=== PATIENT | male | born 1955 | race Caucasian/White ===

== ENCOUNTER → 2024-07-29 | Outpatient (CLI) | payer OTHER, SELFPAY ==
[2024-07-29 11:15] LABS: Collection Type, Urine Clean Catch
[2024-07-29 11:34] LABS: Basophils # (Auto) 0.1 Thou/mm3 (0.0-0.2); Basophils % (Auto) 1 % (0-2.5); Eosinophils # (Auto) 0.3 Thou/mm3 (0.0-0.5); Eosinophils % (Auto) 4 % (0-10); Hematocrit 44.8 % (41.0-53.0); Immature Granulocytes % (Auto) 1 % (0-0); Immature Granulocytes Auto 0.06 Thou/mm3 (0.00-0.00); Lymphocytes # (Auto) 1.9 Thou/mm3 (1.0-4.8); Lymphocytes % (Auto) 23 % (10-50); Mean Corpuscular HGB Conc 33.5 g/dl (31.0-37.0); Mean Corpuscular Hemoglobin 30.5 pg (25.0-35.0); Mean Corpuscular Volume 91 fL (80-100); Monocytes # (Auto) 0.9 Thou/mm3 (0.0-0.8); Monocytes % (Auto) 11 % (0-12); Neutrophils % (Auto) 61 % (37-80); Nucleated Red Blood Cell % 0 /100 WBC (0); Platelet Count 298 Thou/mm3 (140-440); RDW Standard Deviation 40.8 fL (35.1-43.9); Red Blood Count 4.92 Miln/mm3 (4.50-5.90); White Blood Count 8.2 Thou/mm3 (3.8-10.6)
[2024-07-29 11:43] LABS: Bilirubin,Urine Negative (Negative); Blood,Urine Trace (Negative); Clarity,Urine Clear (Clear/Hazy); Color,Urine Lt-Yellow (Lt Yel-Yel); Glucose, Urine Negative (Negative); Ketones,Urine Negative (Negative); Leukocyte Esterase,Urine Negative (Negative); Nitrite,Urine Negative (Negative); PH,Urine 5.5 (5.0-7.0); Protein,Urine Trace (Neg - Trace); RBC,Urine 3 /hpf (0-3); Specific Gravity,Urine 1.027 (1.001-1.035); Squamous Epithelial Cell,Urine 1 /hpf (0-5); Urobilinogen,Urine Negative mg/dL (0.0-1.0); WBC,Urine < 1 /hpf (0-5)
[2024-07-29 11:58] LABS: Alanine Aminotransferase 23 U/L (10-49); Albumin, Serum 4.2 gm/dL (3.4-4.8); Albumin/Globulin Ratio 1.6 (1.2-2.2); Alkaline Phosphatase 109 U/L (46-116); Anion Gap 6 (7-16); Aspartate Amino Transferase 24 U/L (0-34); BUN/Creatinine Ratio 22 Ratio (12-20); Bilirubin,Total 0.6 mg/dL (0.3-1.2); Blood Urea Nitrogen 22 mg/dL (9-23); Calcium 9.6 mg/dL (8.3-10.6); Calcium (Corrected) 9.6 mg/dL (8.5-10.1); Carbon Dioxide 29.4 mMol/L (20.0-31.0); Cardiac Risk Estimate 3.9 RATIO (4.0-6.7); Chloride 107 mMol/L (98-107); Cholesterol 198 mg/dL (132-200); Globulin 2.6 gm/dL (2.3-3.5); Glucose 103 mg/dL (74-106); HDL Cholesterol 51 mg/dL (40-60); LDL Cholesterol,Calculated 131 mg/dL (0-130); Osmolality,Calculated 286 (275-295); Potassium 5.4 mMol/L (3.4-5.1); Sodium 142 mMol/L (136-145); Thyroid Stimulating Hormone 2.63 uIU/mL (0.55-4.78); Total Protein 6.8 gm/dL (5.7-8.2); Triglycerides 82 mg/dL (30-150); eGFR > 60 See Note
== END | disposition home or self-care (01) ==
LOC: COPL 10:05
PROVIDERS: PCP Family Medicine; Referring Provider Family Medicine; Visit Provider Family Medicine
DX: Z00.00 Encounter for general adult medical examination without abnormal findings (principal); E78.2 Mixed hyperlipidemia; I10 Essential (primary) hypertension
CPT/HCPCS: 36415; 80053; 80061; 81001; 84443; 85025

== ENCOUNTER → 2024-08-06 | Outpatient (CLI) | payer OTHER, SELFPAY ==
--- NOTE | 2024-08-06 10:38 | XR_ITS ---
Examination: PA chest single view TECHNIQUE: Upright PA chest single view Exam date and time: August 06, 2024 1206 hours Comparison November 27, 2023 INDICATIONS: COPD diagnosis with coughing shortness of breath beginning one week ago. FINDINGS: Mild hyperexpansion. Normal heart size. Lungs are clear IMPRESSION: COPD No pneumonia identified
== END | disposition home or self-care (01) ==
PROVIDERS: PCP Family Medicine; Referring Provider Family Medicine; Visit Provider Family Medicine
DX: J44.9 Chronic obstructive pulmonary disease, unspecified (principal); R05.1 Acute cough
CPT/HCPCS: 71045

== ENCOUNTER 2024-09-04 14:48 | Emergency (ER) | payer OTHER, SELFPAY ==
[2024-09-04 15:25] VITALS: BP 154/75; PULSE 77; RESP 18; TEMP 37; O2SAT 94
--- NOTE | 2024-09-04 15:26 | PD.EDURI ---
Upper Respiratory Inf. RME/HPI General Chief Complaint: Flu Like Symptoms Stated Complaint: WANTS COVID TEST Time Seen by Provider: 09/04/24 15:27 Source: patient Arrival date/time: 09/04/24 14:48 69-year-old male with a history of COPD presents to the emergency room with a chief complaint of wanting a COVID test. Patient states he has had coughing and congestion for the last weeks. Patient states he is 80% better but states he would like a COVID test to safely isolate from family members if needed. Patient denies any other complaints Mode of arrival: ambulatory Limitations: no limitations Related Data Home Medications ?Medication ?Instructions ?Recorded ?Confirmed albuterol sulfate 90 mcg/actuation 2 puff inhalation Q6H PRN 05/09/14 02/28/24 aerosol inhaler (Proventil HFA) Shortness Of Breath #0 inhalations fluticasone propionate 50 1 ea intranasal QDAY 02/18/22 02/28/24 mcg/actuation nasal spray,suspension gemfibrozil 600 mg tablet 600 mg PO QDAY 02/18/22 02/28/24 latanoprost 0.005 % eye drops 1 drp ophthalmic (eye) QDAY 02/18/22 02/28/24 loratadine 10 mg tablet 1 tab PO QDAY 02/18/22 02/28/24 montelukast 10 mg tablet 1 tab PO QDAY 02/18/22 02/28/24 Previous Rx's ?Medication ?Instructions ?Recorded albuterol sulfate 2.5 mg/3 mL 2.5 mg (3 mL) inhalation Q6H #90 mL 08/28/22 (0.083 %) solution for nebulization budesonide 0.25 mg/2 mL suspension 0.25 mg (2 mL) inhalation BID #60 08/28/22 for nebulization mL Allergies Allergy/AdvReac Type Severity Reaction Status Date / Time clindamycin Allergy Mild RASH Verified 09/04/24 14:50 Penicillins Allergy Mild Seizure Verified 09/04/24 14:50 Review of Systems Review of Systems Systems Reviewed: All systems reviewed, normal except as documented Constitutional Constitutional: Reports system reviewed and no additional complaints, except as documented, Denies fatigue, Denies fever(s), Denies headache(s) and Denies weakness Eyes Eyes: Reports system reviewed and no additional complaints, except as documented, Denies blurry vision and Denies change in vision ENT Ears, Nose, Mouth, and Throat: Reports system reviewed and no additional complaints, except as documented, Denies otalgia, Denies headache(s), Denies nasal congestion, Denies throat swelling and Denies vertigo Cardiovascular Cardiovascular: Reports system reviewed and no additional complaints, except as documented, Denies chest pain, Denies dyspnea and Denies dyspnea on exertion Respiratory Respiratory: Reports system reviewed and no additional complaints, except as documented, Reports chest congestion, Reports cough, Denies dyspnea, Denies dyspnea on exertion and Denies wheezing Gastrointestinal Gastrointestinal: Reports system reviewed and no additional complaints, except as documented, Denies abdominal pain, Denies cramping, Denies nausea and Denies vomiting Genitourinary Genitourinary: Reports system reviewed and no additional complaints, except as documented, Denies dysuria and Denies hematuria Musculoskeletal Musculoskeletal: Reports system reviewed and no additional complaints, except as documented and Denies back pain Integumentary/Breasts Skin/Breast: Reports system reviewed and no additional complaints, except as documented and Denies wounds Neurologic Neurologic: Reports system reviewed and no additional complaints, except as documented, Denies confusion, Denies headache(s), Denies lack of coordination, Denies vertigo and Denies weakness Psychiatric Psychiatric: Reports system reviewed and no additional complaints, except as documented, Denies anxiety, Denies confusion, Denies depression, Denies paranoia, Denies suicidal ideation and Denies tactile hallucinations Endocrine Endocrine: Reports system reviewed and no additional complaints, except as documented and Denies fatigue Hematologic/Lymphatic Hematologic/Lymphatic: Reports system reviewed and no additional complaints, except as documented and Denies lymphadenopathy Allergic/Immunologic Allergic/Immunologic: Reports system reviewed and no additional complaints, except as documented, Denies throat swelling, Denies urticaria and Denies wheezing ED Exam General Limitations: Present no limitations General appearance: Present alert and in no apparent distress Head Head exam: Present atraumatic Eye Eye exam: Present normal appearance, PERRL and EOMI ENT ENT exam: Present normal exam, normal oropharynx and mucous membranes moist Neck Neck exam: Present normal inspection, full ROM and trachea midline Chest Chest inspection: Present normal inspection and symmetric chest wall rise Respiratory Respiratory exam: Present normal lung sounds bilaterally Cardiovascular Cardiovascular exam: Present regular rate, normal rhythm and normal heart sounds Abdominal Exam Abdominal exam: Present soft and normal bowel sounds Extremities Exam Extremities exam: Present normal inspection and full ROM Back Exam Back exam: Present normal inspection and full ROM Neurological Exam Neurological exam: Present alert, oriented X3 and CN II-XII intact Psychiatric Psychiatric exam: Present normal affect and normal mood Skin Skin exam: Present warm, dry, intact and normal color Course Quality Measures none Orders Category Date Time Status Bedside COVID-19 Antigen Test NOW Care 09/04/24 15:25 Completed Bedside Influenza A&B Antigen Test NOW Care 09/04/24 15:25 Completed Vital Signs Vital signs: Vital Signs Temperature 98.6 F 09/04/24 15:25 Pulse Rate 77 09/04/24 15:25 Respiratory Rate 18 09/04/24 15:25 Blood Pressure 154/75 H 09/04/24 15:25 Pulse Oximetry (%) 94 L 09/04/24 15:25 Oxygen Delivery Method Room Air 09/04/24 15:25 Upper Respiratory Infection MDM Narrative MDM Narrative:: 69-year-old male with a history of COPD presents to the emergency room with a chief complaint of wanting a COVID test. Patient states he has had coughing and congestion for the last weeks. Patient states he is 80% better but states he would like a COVID test to safely isolate from family members if needed. Patient denies any other complaints Patient is hemodynamically stable and in no apparent distress Physical examination shows clear bilateral lung sounds there is no wheezing or any abnormal breath sounds. Patient states he is just here for a COVID test because he would like to safely isolate if he is positive. COVID-19 and influenza test were both negative Patient was discharged and educated to follow-up with primary care provider and return emergency room for any evidence of worsening signs or symptoms Patient data External records reviewed:: [facility] previous records Clinical information provided by:: patient Social determinants that could affect healthcare access:: none Patient has the following chronic illnesses:: No chronic illness How is presenting disease/condition affected by chronic disease/condition?: no chronic disease Evaluation data The following diagnostics were reviewed and interpreted by me:: lab results and radiology exam(s) Lab and/or radiology exams considered but not ordered:: Labs and radiology exams considered and ordered Interpretation Summary: N/A Medications / Prescriptions Medications or Prescriptions considered but not ordered:: No medication given Medication administrations:: No medication given Consultations Consultation(s) initiated? (list below): No Diagnosis Upper Respiratory Differential Diagnosis: upper respiratory infection, viral infection, influenza and other (COVID-19) Most likely diagnosis given after review of the tests above:: Upper respiratory infection Admission Indicated Admission indicated?: not indicated Admission Request Was there a request for admission?: No Disposition Plan Disposition Plan: Discharge Discharge Attestation Discharge Attestation: The patient and all family members were given an opportunity to ask questions and understood the discharge instructions. Discharge instructions specifically effects, indications for sooner follow up or return to the emergency department, and the expected course of current diagnosis. Patient condition: Stable Discharge Plan Plan Patient Disposition: HOME (Self Care) Disposition Comment: Stable Prescriptions/Referrals Prescriptions/Med Rec: No Action albuterol sulfate [Proventil HFA] 90 mcg/actuation Hfa Aerosol Inhaler 2 puff INHALATION Q6H PRN (Reason: Shortness Of Breath) Qty: 0 latanoprost 0.005 % drops 1 drp OPHTHALMIC (EYE) QDAY Patient Comments: instill 1 drop INTO AFFECTED EYE(S) once daily montelukast 10 mg tablet 1 tab PO QDAY Patient Comments: take 1 tablet by mouth once daily fluticasone propionate 50 mcg/actuation spray,suspension 1 ea INTRANASAL QDAY Patient Comments: instill 2 sprays into each nostril once daily loratadine 10 mg tablet 1 tab PO QDAY Patient Comments: take 1 tablet by mouth every morning gemfibrozil 600 mg Tablet 600 mg PO QDAY albuterol sulfate 2.5 mg /3 mL (0.083 %) solution for nebulization 2.5 mg inhalation Q6H Qty: 90 0RF budesonide 0.25 mg/2 mL suspension for nebulization 0.25 mg inhalation BID Qty: 60 0RF Referrals: Emmie Rae MD [Primary Care Provider] - In 1 week Problem List Clinical Impression: Lab test negative for COVID-19 virus Patient/Caregiver Discharge Instructions Additional Instructions: Please follow-up with your primary care provider in the next 24 to 48 hours. Your COVID-19 test and influenza test were both negative For any evidence of worsening signs or symptoms return to the emergency room immediately Print Language: Kenyan Stand Alone Forms: [facility] Award Info., Patient Portal Info Letter PA/DUANE Supervising Physician CHARLOTTE/DUANE Supervising Physician: Dr Tellez
== END 2024-09-04 16:21 | disposition home or self-care (01) ==
PROVIDERS: Emergency Provider Emergency Medicine; PCP Family Medicine
DX: R05.9 Cough, unspecified (principal); Z20.822 Contact with and (suspected) exposure to COVID-19; J44.9 Chronic obstructive pulmonary disease, unspecified
CPT/HCPCS: 87400; 87811; 99283

== ENCOUNTER 2024-10-22 09:16 | Emergency (ER) | payer OTHER, SELFPAY ==
[2024-10-22 09:16] VITALS: BMI 29.7
[2024-10-22 09:21] VITALS: BP 174/84; PULSE 83; TEMP 36.6; O2SAT 96
--- NOTE | 2024-10-22 09:38 | PD.EDSKIN ---
ED Skin Abcess FB-RME/HPI General Chief complaint: Skin/Abscess/Foreign Body Stated complaint: RASH TO ARMS Time Seen by Provider: 10/22/24 09:26 Arrival date/time: 10/22/24 09:16 69-year-old male presents emergency department today for complaint of rash bilateral arms patient reports rash is itchy there are no other associated symptoms or aggravating factors no other modifying factors, patient denies taking medication before coming to ER today Limitations: no limitations Related Data Home Medications ?Medication ?Instructions ?Recorded ?Confirmed albuterol sulfate 90 mcg/actuation 2 puff inhalation Q6H PRN 05/09/14 02/28/24 aerosol inhaler (Proventil HFA) Shortness Of Breath #0 inhalations fluticasone propionate 50 1 ea intranasal QDAY 02/18/22 02/28/24 mcg/actuation nasal spray,suspension gemfibrozil 600 mg tablet 600 mg PO QDAY 02/18/22 02/28/24 latanoprost 0.005 % eye drops 1 drp ophthalmic (eye) QDAY 02/18/22 02/28/24 loratadine 10 mg tablet 1 tab PO QDAY 02/18/22 02/28/24 montelukast 10 mg tablet 1 tab PO QDAY 02/18/22 02/28/24 Previous Rx's ?Medication ?Instructions ?Recorded albuterol sulfate 2.5 mg/3 mL 2.5 mg (3 mL) inhalation Q6H #90 mL 08/28/22 (0.083 %) solution for nebulization budesonide 0.25 mg/2 mL suspension 0.25 mg (2 mL) inhalation BID #60 08/28/22 for nebulization mL doxycycline hyclate 100 mg capsule 100 mg PO BID 7 days #14 caps 10/22/24 triamcinolone acetonide 0.1 % 1 applic topical BID #30 grams 10/22/24 topical cream Allergies Allergy/AdvReac Type Severity Reaction Status Date / Time clindamycin Allergy Mild RASH Verified 10/22/24 09:19 Penicillins Allergy Mild Seizure Verified 10/22/24 09:19 Review of Systems Review of Systems Systems Reviewed: All systems reviewed, normal except as documented Constitutional Constitutional: Reports system reviewed and no additional complaints, except as documented, Denies fever(s) and Denies headache(s) Eyes Eyes: Reports system reviewed and no additional complaints, except as documented and Denies blurry vision ENT Ears, Nose, Mouth, and Throat: Reports system reviewed and no additional complaints, except as documented, Denies headache(s), Denies nasal congestion and Denies nasal discharge Cardiovascular Cardiovascular: Reports system reviewed and no additional complaints, except as documented, Denies chest pain and Denies dyspnea Respiratory Respiratory: Reports system reviewed and no additional complaints, except as documented, Denies chest congestion, Denies cough and Denies dyspnea Gastrointestinal Gastrointestinal: Reports system reviewed and no additional complaints, except as documented and Denies abdominal pain Integumentary/Breasts Skin/Breast: Reports system reviewed and no additional complaints, except as documented, Reports pruritus and Reports rash Neurologic Neurologic: Reports system reviewed and no additional complaints, except as documented, Reports as per HPI and Denies headache(s) Past Medical History Past Medical History NEUROLOGIC: Positive Neurological Disorders and Peripheral Neuropathy; Negative Seizures CARDIAC: Positive Cardiac Disorders, Hypercholesterolemia, Hypertension and Hypotension; Negative Congestive Heart Failure RESPIRATORY: Positive Chronic Obstructive Pulmonary Disease (COPD), Asthma and Bronchitis GASTROINTESTINAL: Positive Gastrointestinal Disorders, Pancreatitis and Obesity GENITOURINARY: Negative Genitourinary Disorders or Renal Disease MUSCULOSKELETAL: Negative Musculoskeletal Disorders ENT: Positive Cataracts (bilateral) ENDOCRINE: Negative Endocrine Disorders, Diabetes Mellitus Type 1 or Diabetes Mellitus Type 2 HEMATOLOGIC: Negative Blood Disorders, Anemia, Leukemia, Sickle Cell Disease or Clotting Problems OTHER HISTORY: Negative Hospitalization, Autoimmune Disease, Shingles, Blood Transfusions, Blood Transfusion Reaction, Anesthesia Reactions, MRSA, VRSA or Cancer Family History FAMILY HISTORY: Negative Family Psychiatric Problems, Family Respiratory Disorders, Family Cardiac Disorders, Family Gastrointestinal Problems, Family Cancer, Family Surgery or Family Anesthesia Reaction Surgical History SURGICAL: Negative Cardiac Surgery, Endocrine Surgery or Abdominal Surgery Social History SMOKING STATUS: Never smoker ED Exam General Limitations: Present no limitations General appearance: Present alert and in no apparent distress Head Head exam: Present atraumatic Eye Eye exam: Present normal appearance, PERRL and EOMI ENT ENT exam: Present normal exam, normal oropharynx and mucous membranes moist Neck Neck exam: Present normal inspection, full ROM and trachea midline Chest Chest inspection: Present normal inspection and symmetric chest wall rise Respiratory Respiratory exam: Present normal lung sounds bilaterally; Absent respiratory distress, wheezes, stridor, accessory muscle use or prolonged expiratory phase Cardiovascular Cardiovascular exam: Present regular rate, normal rhythm and normal heart sounds Abdominal Exam Abdominal exam: Present soft and normal bowel sounds Extremities Exam Extremities exam: Present normal inspection and full ROM Back Exam Back exam: Present normal inspection and full ROM Neurological Exam Neurological exam: Present alert, oriented X3, CN II-XII intact, normal gait and reflexes normal; Absent motor sensory deficit Psychiatric Psychiatric exam: Present normal affect and normal mood Skin Skin exam: Present warm, dry and rash (Rash on arms) Course Quality Measures none Vital Signs Vital signs: Vital Signs Temperature 97.9 F 10/22/24 09:21 Pulse Rate 83 10/22/24 09:21 Blood Pressure 174/84 H 10/22/24 09:21 Pulse Oximetry (%) 96 10/22/24 09:21 Oxygen Delivery Method Room Air 10/22/24 09:21 O2 saturation 96% r/a wnl Skin / Abscess / Foreign Body MDM Narrative MDM Narrative:: 69-year-old male presents emergency department today for complaint of rash bilateral arms patient reports rash is itchy there are no other associated symptoms or aggravating factors no other modifying factors, patient denies taking medication before coming to ER today On exam patient well-appearing patient's not appear toxic in no acute distress On exam patient has rash patient be treated accordingly no evidence of anaphylaxis Patient reports he is a follow-up with dermatology I told him to keep his appointment Patient discharged home in no distress to follow-up with primary care doctor in the next 24 to 48 hours and for any worsening symptoms to return to the ER immediately Patient data External records reviewed:: [facility] previous records Clinical information provided by:: patient Social determinants that could affect healthcare access:: none Patient has the following chronic illnesses:: None How is presenting disease/condition affected by chronic disease/condition?: no chronic disease Evaluation data The following diagnostics were reviewed and interpreted by me:: other (specify) (N/A) Lab and/or radiology exams considered but not ordered:: Considered not ordered Interpretation Summary: N/A Medications / Prescriptions Medications or Prescriptions considered but not ordered:: Given Medication administrations:: Given Consultations Consultation(s) initiated? (list below): No Diagnosis Skin/Abscess Differential Diagnosis: abscess of skin or subcutaneous tissue, viral exanthem, urticaria, cellulitis, eczema and insect bites Most likely diagnosis given after review of the tests above:: Urticaria Admission Indicated Admission indicated?: not indicated Admission Request Was there a request for admission?: No Disposition Plan Disposition Plan: Discharge Discharge Attestation Discharge Attestation: The patient and all family members were given an opportunity to ask questions and understood the discharge instructions. Discharge instructions specifically effects, indications for sooner follow up or return to the emergency department, and the expected course of current diagnosis. Patient condition: Stable Discharge Plan Plan Patient Disposition: HOME (Self Care) Discharge Disposition comment: Stable Prescriptions/Referrals Prescriptions/Med Rec: New triamcinolone acetonide 0.1 % cream 1 applic topical BID Qty: 30 0RF doxycycline hyclate 100 mg capsule 100 mg PO BID 7 Days Qty: 14 0RF No Action albuterol sulfate [Proventil HFA] 90 mcg/actuation Hfa Aerosol Inhaler 2 puff INHALATION Q6H PRN (Reason: Shortness Of Breath) Qty: 0 latanoprost 0.005 % drops 1 drp OPHTHALMIC (EYE) QDAY Patient Comments: instill 1 drop INTO AFFECTED EYE(S) once daily montelukast 10 mg tablet 1 tab PO QDAY Patient Comments: take 1 tablet by mouth once daily fluticasone propionate 50 mcg/actuation spray,suspension 1 ea INTRANASAL QDAY Patient Comments: instill 2 sprays into each nostril once daily loratadine 10 mg tablet 1 tab PO QDAY Patient Comments: take 1 tablet by mouth every morning gemfibrozil 600 mg Tablet 600 mg PO QDAY albuterol sulfate 2.5 mg /3 mL (0.083 %) solution for nebulization 2.5 mg inhalation Q6H Qty: 90 0RF budesonide 0.25 mg/2 mL suspension for nebulization 0.25 mg inhalation BID Qty: 60 0RF Problem List Clinical Impression: Rash, skin Patient/Caregiver Discharge Instructions Additional Instructions: Please follow-up with dermatology as discussed for worsening symptoms or concerns return immediately Print Language: Tajik Stand Alone Forms: [facility]by Award Info., Patient Portal Info Letter PA/CLAIM ATTORNEY Supervising Physician PA/DUANE Supervising Physician: Dr. cabrera
== END 2024-10-22 10:00 | disposition home or self-care (01) ==
LOC: SERX 09:46
PROVIDERS: Emergency Provider Emergency Medicine; PCP Family Medicine
DX: R21 Rash and other nonspecific skin eruption (principal)
CPT/HCPCS: 99281

== ENCOUNTER → 2024-11-14 | Outpatient (CLI) | payer OTHER, SELFPAY ==
--- NOTE | 2024-11-14 09:57 | XR_ITS ---
Examination: Foot, right, 3 views Technique: AP, oblique, lateral views foot, 3 views Date and time of exam: November 14, 2024 1018 hours INDICATIONS: Right foot drop and pain months. FINDINGS: Mild bunion deformity Moderate to advanced osteoarthritis first metatarsophalangeal joint Prominent osteopenia Moderate osteoarthritis tarsometatarsal joints Soft tissue vascular calcification No cortical bone destruction IMPRESSION: Osteoarthritis as above
[2024-11-14 10:13] LABS: Alanine Aminotransferase 20 U/L (10-49); Albumin, Serum 4.2 gm/dL (3.4-4.8); Albumin/Globulin Ratio 1.5 (1.2-2.2); Alkaline Phosphatase 97 U/L (46-116); Anion Gap 5 (7-16); Aspartate Amino Transferase 25 U/L (0-34); BUN/Creatinine Ratio 14 Ratio (12-20); Bilirubin,Total 0.8 mg/dL (0.3-1.2); Blood Urea Nitrogen 14 mg/dL (9-23); Calcium 9.2 mg/dL (8.3-10.6); Calcium (Corrected) 9.2 mg/dL (8.5-10.1); Carbon Dioxide 31.2 mMol/L (20.0-31.0); Cardiac Risk Estimate 4.3 RATIO (4.0-6.7); Chloride 105 mMol/L (98-107); Cholesterol 210 mg/dL (132-200); Globulin 2.8 gm/dL (2.3-3.5); Glucose 106 mg/dL (74-106); HDL Cholesterol 49 mg/dL (40-60); LDL Cholesterol,Calculated 145 mg/dL (0-130); Osmolality,Calculated 281 (275-295); Potassium 5.4 mMol/L (3.4-5.1); Sodium 141 mMol/L (136-145); Triglycerides 82 mg/dL (30-150); eGFR > 60 See Note
== END | disposition home or self-care (01) ==
LOC: COPL 08:59 → CDIM 09:15
PROVIDERS: PCP Family Medicine; Referring Provider Family Medicine; Visit Provider Family Medicine
DX: M19.071 Primary osteoarthritis, right ankle and foot (principal); E78.2 Mixed hyperlipidemia; I10 Essential (primary) hypertension; J44.9 Chronic obstructive pulmonary disease, unspecified
CPT/HCPCS: 36415; 73630; 80053; 80061

== ENCOUNTER → 2024-12-31 | Outpatient (CLI) | payer OTHER, SELFPAY ==
--- NOTE | 2024-12-31 | XR_ITS ---
Examination: Bone densitometry Date and time of exam:December 31, 2024 1109 hours INDICATIONS: 69-year-old male with diagnosis age related osteoporosis Technique: Lumbar spine and hip total bone mineralization values of an calculated. Peak reference and age match control results have been displayed. Findings: Lumbar spine total bone mineralization is1.622 gm/cm2. This is 4.8 standard deviations above peak reference. This is 5.7 standard deviations above age-matched controls. Hip total bone mineralization is 1.049 gm/cm2 This is 0.1 standard deviations above peak reference. This is 0.8 standard deviations above age-matched controls Impression: There is normal mineralization based on lumbar spine measurements. There is normal mineralization based on hip measurements
== END | disposition home or self-care (01) ==
LOC: CDIM 10:07
PROVIDERS: Referring Provider Family Medicine; Visit Provider Family Medicine
DX: M81.0 Age-related osteoporosis without current pathological fracture (principal)
CPT/HCPCS: 77080

== ENCOUNTER → 2025-03-24 | Outpatient (CLI) | payer OTHER, SELFPAY ==
[2025-03-24 10:47] LABS: Alanine Aminotransferase 32 U/L (10-49); Albumin, Serum 4.5 gm/dL (3.4-4.8); Albumin/Globulin Ratio 2.1 (1.2-2.2); Alkaline Phosphatase 106 U/L (46-116); Anion Gap 8 (7-16); Aspartate Amino Transferase 31 U/L (0-34); BUN/Creatinine Ratio 18 Ratio (12-20); Bilirubin,Total 1.0 mg/dL (0.3-1.2); Blood Urea Nitrogen 16 mg/dL (9-23); Calcium 9.1 mg/dL (8.3-10.6); Calcium (Corrected) 9.1 mg/dL (8.5-10.1); Carbon Dioxide 28.7 mMol/L (20.0-31.0); Cardiac Risk Estimate 3.2 RATIO (4.0-6.7); Chloride 106 mMol/L (98-107); Cholesterol 143 mg/dL (132-200); Creatinine (Component) 0.9 mg/dL (0.6-1.3); Globulin 2.1 gm/dL (2.3-3.5); Glucose 103 mg/dL (74-106); HDL Cholesterol 45 mg/dL (40-60); LDL Cholesterol,Calculated 80 mg/dL (0-130); Osmolality,Calculated 286 (275-295); Potassium 4.5 mMol/L (3.4-5.1); Sodium 143 mMol/L (136-145); Total Protein 6.6 gm/dL (5.7-8.2); Triglycerides 89 mg/dL (30-150); eGFR > 60 See Note
== END | disposition home or self-care (01) ==
LOC: COPL 09:48
PROVIDERS: PCP Family Medicine; Referring Provider Family Medicine; Visit Provider Family Medicine
DX: E78.2 Mixed hyperlipidemia (principal)
CPT/HCPCS: 36415; 80053; 80061

== ENCOUNTER → 2025-05-06 | Outpatient (CLI) | payer OTHER, SELFPAY ==
--- NOTE | 2025-05-06 | XR_ITS ---
Examination: Bilateral hips, AP pelvis, 5 views Technique: AP, lateral views both hips, AP pelvis, 5 views Exam date and time: November 04, 2024, 1242 hours INDICATION: Bilateral hip pain beginning 3 days ago. FINDINGS: Moderate bilateral hip osteoarthritis No right or left hip fracture or dislocation Greater trochanteric bursitis both hips Bones of the pelvis intact Advanced degenerative disc disease L5-S1 IMPRESSION: Moderate bilateral hip osteoarthritis Bilateral greater trochanteric bursitis
== END | disposition home or self-care (01) ==
LOC: CDIM 11:13
PROVIDERS: PCP Family Medicine; Referring Provider Family Medicine; Visit Provider Family Medicine
DX: M16.0 Bilateral primary osteoarthritis of hip (principal); M70.62 Trochanteric bursitis, left hip; M70.61 Trochanteric bursitis, right hip
CPT/HCPCS: 73523